=== PATIENT | male | born 1980 | race Caucasian/White ===

== ENCOUNTER 2021-02-14 11:30 | Emergency (ER) | payer OTHER ==
[2021-02-14 12:00] LABS: BILIRUBIN,URINE NEGATIVE (NEGATIVE); GLUCOSE, URINE (UA) NEGATIVE (NEGATIVE); KETONES,URINE (UA) NEGATIVE (NEGATIVE); LEUKOCYTE ESTERASE, URINE NEGATIVE (NEGATIVE); NITRITE,URINE NEGATIVE (NEGATIVE); OCCULT BLOOD,URINE NEGATIVE (NEGATIVE); PROTEIN,URINE NEGATIVE (NEGATIVE); UROBILINOGEN,URINE 1 (NORMAL) E.U./dL (NORMAL)
[2021-02-14 12:02] LABS: CLARITY,URINE CLEAR (CLEAR)
[2021-02-14] MEDS ORDERED: HYDROmorphone 1 MG/ML CARPUJECT IVP STA (12:02)
[2021-02-14] MEDS ORDERED: ONDANSETRON 4 MG/2 ML VIAL IVP STA (12:02)
--- NOTE | 2021-02-14 12:04 | ED Physician Documentation ---
History of Present Illness - Stated complaint Stated Complaint: RIGHT SIDE PX, NAUSEA - Chief complaint Chief Complaint: Abd Pain - Additonal information Additional information: 40-year-old male presents emergency department for evaluation of acute onset right upper quadrant abdominal pain. He woke up this morning with a gnawing/nagging pain in his right upper quadrant and did have some associated nausea. He did go to work and was attempting to eat breakfast which included frosted flakes and a sausage egg breakfast bowl, however he could not finish it as he got nauseated. As he was attempting a large aircraft pain got worse and he presents here to the ER. He endorses nausea but no vomiting. No fevers. No dysuria urgency or frequency. No change in symptoms with micturition. He does report a history of a hepatic cyst removal in 2012 but no other abdominal surgeries. Former smoker quit 6 months ago. Denies tobacco vaping or alcohol use. No history of hypertension or diabetes and takes no routinely scheduled or prescribed medications Review of Systems Constitutional: denies: Fever, Chills Ears: reports: Reviewed and negative Nose: reports: Reviewed and negative Cardiac: reports: Reviewed and negative Respiratory: reports: Reviewed and negative GI: reports: Abdominal Pain, Nausea. denies: Vomiting, Constipation, Diarrhea, Hematemesis, Bloody / black stool : reports: Reviewed and negative Skin: reports: Reviewed and negative PD PAST MEDICAL HISTORY - Present Medications Home Medications: Ambulatory Orders Medication Instructions Recorded Confirmed Ondansetron Odt [Zofran] 4 mg TL Q6H PRN #10 tablet 02/14/21 - Allergies Allergies/Adverse Reactions: Allergies Allergy/AdvReac Type Severity Reaction Status Date / Time No Known Drug Allergies Allergy Verified 02/14/21 11:40 PD ED PE NORMAL - General General: Alert and oriented X 3, No acute distress - Neck Neck: Supple, no meningeal sign - Cardiac Cardiac: RRR, No murmur - Respiratory Respiratory: Clear bilaterally - Abdomen Abdomen: Normal bowel sounds, Soft, Non distended. No: Non tender (Focal tenderness to the right upper quadrant. Equivocal Todd's. Negative McBurney's. 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, No motor deficit Results - Vitals Vitals: Vital Signs - 24 hr 02/14/21 02/14/21 11:38 13:40 Temperature 36.4 C L Heart Rate 76 64 Respiratory 16 19 Rate Blood Pressure 143/81 H 126/73 O2 Saturation 97 98 Oxygen O2 Source Room air - Labs Labs: Laboratory Tests 02/14/21 02/14/21 02/14/21 11:53 12:04 12:04 WBC 6.4 RBC 4.36 L Hgb 13.6 L Hct 38.1 L MCV 87.4 MCH 31.2 H MCHC 35.7 RDW 12.0 Plt Count 202 MPV 9.8 Neut # (Auto) 4.2 Lymph # (Auto) 1.5 [place] # (Auto) 0.5 Eos # (Auto) 0.2 Baso # (Auto) 0.0 Absolute Nucleated RBC 0.00 Nucleated RBC % 0.0 Sodium 138 Potassium 4.1 Chloride 107 Carbon Dioxide 25 Anion Gap 6.0 BUN 18 Creatinine 1.0 Estimated GFR (MDRD) 84 L Glucose 97 Calcium 9.3 Total Bilirubin 0.7 AST 20 ALT 23 Alkaline Phosphatase 93 Total Protein 7.0 Albumin 4.5 Globulin 2.5 Albumin/Globulin Ratio 1.8 Lipase 33 Urine Color YELLOW Urine Clarity CLEAR Urine pH 6.0 Ur Specific [place] >=1.030 H Urine Protein NEGATIVE Urine Glucose (UA) NEGATIVE Urine Ketones NEGATIVE Urine Occult Blood NEGATIVE Urine Nitrite NEGATIVE Urine Bilirubin NEGATIVE Urine Urobilinogen 1 (NORMAL) Ur Leukocyte Esterase NEGATIVE Ur Microscopic Review NOT INDICATED Urine Culture Comments NOT INDICATED - Rads (name of study) Abd US Radiology: See rad report, Other (No gallstones or CBD dilation. No findings of cholelithiasis) CT abd Radiology: Final report received (No acute abnormality. Normal appendix. Normal appearance of gallbladder. Multiple fluid-filled small bowel loops raising possibility of a low-grade enteritis, dysmotility or malabsorption.) PD MEDICAL DECISION MAKING - ED course Complexity details: reviewed results, considered differential, d/w patient ED course: [id number] male presents emergency department for evaluation of acute onset right upper quadrant abdominal pain with associated nausea that began this a.m. Unable to eat his breakfast and reported that the pain doubled him over at work. Initial concern was for possible Catie lithiasis/cholecystitis. Screening labs however were unremarkable including LFTs. Abdominal ultrasound did not reveal any findings of cholelithiasis, CBD dilation or cholecystitis. Patient persisted with moderate upper abdominal pain despite Dilaudid in the ER therefore CT was performed which was unremarkable though it does suggest mild early enteritis. Patient is stable for discharge home prescription for Zofran is levied. Do recommend clear liquid diet for 24 to 48 hours. Emergent return precautions were discussed. Departure - Departure Disposition: Home, Self Care Clinical Impression: RUQ abdominal pain Condition: Stable Record reviewed to determine appropriate education?: Yes Prescriptions: Ondansetron Odt [Zofran] 4 mg TL Q6H PRN #10 tablet PRN Reason: Nausea / Vomiting Comments: Marco Antonio garay are seen in the emergency department today for right upper quadrant abdominal pain. Your screening labs are essentially normal. The ultrasound of your abdomen did not show a problem with your gallbladder. We did do a CT of your abdomen that also showed a normal gallbladder and appendix. It however did show multiple fluid-filled small bowel loops. We often see this in early gastroenteritis. I do recommend over the next 24 to 48 hours that you eat a clear liquid diet only. I have prescribed some Zofran for nausea. You may experience a mild amount of diarrhea. If at any point your symptoms are worsening, you develop fevers, have bloody bowel movements suddenly severe or different abdominal pain or uncontrolled vomiting then please return immediately to the ER for a second evaluation.
[2021-02-14 12:08] LABS: BASOPHILS % (AUTO) 0.6 %; EOSINOPHILS # (AUTO) 0.2 10^3/uL (0.0-0.7); EOSINOPHILS % (AUTO) 2.4 %; HCT - HEMATOCRIT 38.1 % (42.0-52.0); HGB - HEMOGLOBIN 13.6 g/dL (14.0-18.0); LYMPHOCYTES # (AUTO) 1.5 10^3/uL (1.5-3.5); LYMPHOCYTES % (AUTO) 23.8 %; MEAN CORPUSCULAR HEMOGLOBIN 31.2 pg (27.0-31.0); MEAN CORPUSCULAR HGB CONC 35.7 g/dL (32.0-36.0); MEAN CORPUSCULAR VOLUME 87.4 fL (80.0-94.0); MEAN PLATELET VOLUME 9.8 fL (7.4-11.4); MONOCYTES # (AUTO) 0.5 10^3/uL (0.0-1.0); MONOCYTES % (AUTO) 7.4 %; NEUTROPHILS # (AUTO) 4.2 10^3/uL (1.5-6.6); NEUTROPHILS % (AUTO) 65.5 %; PLT - PLATELET COUNT 202 10^3/uL (130-450); RED BLOOD COUNT 4.36 10^6/uL (4.70-6.10); WHITE BLOOD COUNT 6.4 x10^3/uL (4.8-10.8)
[2021-02-14 12:21] LABS: ALBUMIN 4.5 g/dL (3.2-5.5); ALBUMIN/GLOBULIN RATIO 1.8 (1.0-2.2); BILIRUBIN,TOTAL 0.7 mg/dL (0.2-1.0); CALCIUM 9.3 mg/dL (8.5-10.3); POTASSIUM 4.1 mmol/L (3.5-5.0)
[2021-02-14 13:45] VITALS: BP 126/73
[2021-02-14] MEDS ORDERED: IOPAMIDOL-300 50 ML VIAL ONE (14:04)
--- NOTE | 2021-02-14 14:04 | Ultrasound Report ---
PROCEDURE: Abdomen Limited INDICATIONS: RUQ abd pain; ? biliary colic TECHNIQUE: Real-time focused scanning was performed of the abdomen, with image documentation. COMPARISON: None. FINDINGS: Liver measures 16.3 cm in length. Normal echotexture. No focal hepatic lesion identified. The gallbladder is unremarkable. No cholelithiasis. No wall thickening. No sonographic Todd sign. B ile ducts are within normal limits. The pancreas is sonographically unremarkable. Right kidney measur es 11.5 cm in length IMPRESSION: Negative examination as above. Normal appearance of the gallbladder. Reviewed by: Manav Domingo MD on 02/14/2021 2:02 PM PDT Approved by: Manav Domingo MD on 02/14/2021 2:02 PM PDT Station ID: [id number]
--- NOTE | 2021-02-14 14:48 | CT Report ---
PROCEDURE: Abdomen/Pelvis W INDICATIONS: RUQ abd pain CONTRAST: IV CONTRAST: Isovue 300 ml: 100 PO CONTRAST: *NO PO CONTRAST TECHNIQUE: After the administration of IV contrast, 5 mm thick sections acquired from the diaphragms to the symp hysis. 5 mm thick coronal and sagittal reformats were acquired. For radiation dose reduction, the f ollowing was used: automated exposure control, adjustment of mA and/or kV according to patient size. COMPARISON: None. FINDINGS: ABDOMEN: Lung bases: Normal Heart:Normal in size. No pericardial effusion. Liver: Normal. Gallbladder: Normal. Bile ducts: Normal. Pancreas: Normal. Spleen: Normal. Adrenals: Normal. Kidneys and ureters: Normal. Stomach and duodenum: Normal. Bowel: No evidence of bowel obstruction. Multiple fluid-filled small bowel loops are present raising the possibility of low-grade enteritis, dysmotility or malabsorption. Incidental colonic diverticulos is. Normal appearance of the appendix. Other: No free fluid or air. Abdominal nodes: Normal. Aorta: Normal in size. IVC: Normal. Ventral wall: Normal. PELVIS: Bladder: Normal. Pelvic nodes: Normal. Inguinal: Trace fat containing right inguinal hernia Bones: No vertebral body compression fracture. No suspicious bone lesion. Incidentally noted left-neena ed partial sacralization of L5. IMPRESSION: Overall, no acute abnormality. Normal appendix. Normal appearance of the gallbladder. Multiple fluid-filled small bowel loops, raising possibility of a low-grade enteritis, dysmotility or malabsorption. Reviewed by: Manav Domingo MD on 02/14/2021 2:47 PM PDT Approved by: Manav Domingo MD on 02/14/2021 2:47 PM PDT Station ID: [id number]
[2021-02-14] MEDS ORDERED: IOPAMIDOL-300 50 ML VIAL IVP ONE (19:57)
== END 2021-02-14 15:19 | disposition home or self-care (01) ==
LOC: ED 11:30
DX: R10.11 Right upper quadrant pain (principal)
CPT/HCPCS: 36415; 74177; 76705; 80053; 81003; 83690; 85025; 96374; 96375; 99284; J1170; Q9967; 81001; 87086

== ENCOUNTER 2022-06-08 07:59 | Outpatient (CLI) | payer OTHER ==
--- NOTE | 2022-06-10 09:01 | MRI Report ---
PROCEDURE: SHOULDER WO - LT INDICATIONS: SHOULDER PAIN TECHNIQUE: Noncontrast oblique coronal T2 fast spin echo with fat saturation, oblique sagittal T1 spin echo and T2 fast spin echo with fat saturation, axial T1 spin echo and T2 fast spin echo with fat saturation a nd 3-D gradient echo through the shoulder. COMPARISON: None. FINDINGS: Image quality: Excellent. Rotator cuff: Moderate supraspinatus and infraspinatus tendinosis is seen. The teres minor tendon is intact. There is mild to moderate subscapularis tendinosis. There is no significant rotator cuff musc le atrophy. Bones and bursae: No acute trabecular bone injury or fracture. Chronic traction cystic changes are se en in the posterosuperior humeral head. Moderate partial-thickness cartilage loss is seen in the post erior glenoid and medial humeral head. Mild degenerative changes of the acromioclavicular joint. Smal l subacromial/subdeltoid bursal effusion. No significant glenohumeral effusion. Capsule and soft tissues: No displaced labral tear. The proximal biceps long head tendon inserts mild tendinosis. There is partial effacement of the normal fat signal in the rotator interval. The middle and humeral ligament and the anterior band of the inferior glenohumeral ligament appear mildly thick ened. IMPRESSION: 1.Diffuse mild to moderate rotator cuff tendinosis involving the supraspinatus, infraspinatus, and mcknight bscapularis tendons. 2.Mild tendinosis of the proximal biceps long head tendon. 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 Mild acromioclavicular joint osteoarthros is. 4.Small subacromial/subdeltoid bursal effusion or bursitis. 5.Partial effacement of the rotator interval fat and mild thickening of the inferior glenohumeral lig ament are nonspecific, but can be seen in the setting of the clinical syndrome of adhesive capsulitis . Reviewed by: Shane Velez MD on 06/10/2022 9:00 AM PST Approved by: Shane Velez MD on 06/10/2022 9:00 AM PST Station ID: [id number]
== END 2022-06-08 08:00 | disposition home or self-care (01) ==
LOC: DI 07:59
DX: M94.212 Chondromalacia, left shoulder (principal); M19.012 Primary osteoarthritis, left shoulder; M75.92 Shoulder lesion, unspecified, left shoulder; M67.922 Unspecified disorder of synovium and tendon, left upper arm; M25.412 Effusion, left shoulder